=== PATIENT | female | born 1975 | race Caucasian/White ===

== ENCOUNTER 2019-01-02 21:53 | Emergency (ER) | payer MEDICAID ==
[~2019-01-02] VITALS: Ht 154.9 cm; Wt 61.7 kg
[2019-01-02 22:10] VITALS: Ht 154.9 cm; Wt 61.7 kg
[2019-01-03 01:23] VITALS: BP 114/73
== END 2019-01-03 01:23 | disposition home or self-care (01) ==
LOC: ED 21:53
DX: M54.41 Lumbago with sciatica, right side (principal); Z98.890 Other specified postprocedural states; Z90.49 Acquired absence of other specified parts of digestive tract; Z88.0 Allergy status to penicillin
CPT/HCPCS: J1885

== ENCOUNTER 2019-05-19 20:27 | Emergency (ER) | payer MEDICAID ==
[~2019-05-19] VITALS: Ht 165.1 cm; Wt 60.4 kg
[2019-05-19 20:31] VITALS: Ht 165.1 cm; Wt 60.4 kg
[2019-05-19 21:25] LABS: BASOPHIL % 0.2 % (0-2)
[2019-05-19 21:26] LABS: PLATELET COUNT 424 x10^3mcL (130-400); RED CELL DISTRIBUTION WIDTH 21.2 % (11.5-14.5)
[2019-05-19 21:34] LABS: CALCIUM 8.4 mg/dL (8.5-10.1); CARBON DIOXIDE 25.6 mmol/L (21-32); CHLORIDE SERUM 105 mmol/L (98-107); CREATININE SERUM 0.7 mg/dL (0.6-1.0); GFR1 > 60 mL/min; GLUCOSE SERUM 118 mg/dL (74-106); POTASSIUM SERUM 3.7 mmol/L (3.5-5.1); SODIUM SERUM 141 mmol/L (136-145)
[2019-05-19 21:38] LABS: ALBUMIN 3.8 g/dL (3.4-5.0); ALKALINE PHOSPHATASE 76 U/L (46-116); ALT/SGPT 17 U/L (14-59); AST/SGOT 19 U/L (15-37); BILIRUBIN TOTAL 0.3 mg/dL (0.20-1.00); LIPASE 85 IU/L (73-393); TOTAL PROTEIN, SERUM 7.8 g/dL (6.4-8.2)
[2019-05-19 21:51] LABS: rbc morphology (normal/abnorm) ABNORMAL (NORMAL)
[2019-05-20 00:53] VITALS: BP 104/61
== END 2019-05-20 00:53 | disposition home or self-care (01) ==
LOC: ED 20:27
DX: K52.9 Noninfective gastroenteritis and colitis, unspecified (principal); Z90.89 Acquired absence of other organs; Z98.890 Other specified postprocedural states; Z88.0 Allergy status to penicillin
CPT/HCPCS: 36415; J0500